=== PATIENT | female | born 1960 | race Two or more races ===

== ENCOUNTER 2016-12-26 13:28 | Emergency (ER) | payer MEDICAID ==
[2016-12-26 17:56] VITALS: BP 116/73
== END 2016-12-26 17:57 | disposition home or self-care (01) ==
LOC: ED 13:28
DX: F41.9 Anxiety disorder, unspecified (principal); R10.9 Unspecified abdominal pain; R11.10 Vomiting, unspecified; R19.7 Diarrhea, unspecified; I10 Essential (primary) hypertension
CPT/HCPCS: J2060; Q0162

== ENCOUNTER 2017-11-28 08:50 | Emergency (ER) | payer MEDICAID ==
[~2017-11-28] VITALS: Ht 152.4 cm; Wt 82.5 kg
[2017-11-28 08:54] VITALS: Ht 152.4 cm; Wt 82.5 kg
[2017-11-28 09:46] LABS: BASOPHIL % 0.3 % (0-2); RED CELL DISTRIBUTION WIDTH 13.6 % (11.5-14.5)
[2017-11-28 09:47] LABS: PLATELET COUNT 482 x10^3mcL (130-400)
[2017-11-28 09:56] LABS: CALCIUM 9.3 mg/dL (8.5-10.1); CARBON DIOXIDE 25.6 mmol/L (21-32); CHLORIDE SERUM 95 mmol/L (98-107); CREATININE SERUM 0.8 mg/dL (0.6-1.0); GFR1 > 60 mL/min; GLUCOSE SERUM 121 mg/dL (74-106); POTASSIUM SERUM 4.9 mmol/L (3.5-5.1); SODIUM SERUM 127 mmol/L (136-145)
[2017-11-28 11:43] VITALS: BP 111/72
== END 2017-11-28 11:43 | disposition home or self-care (01) ==
LOC: ED 08:50
PROVIDERS: Emergency Medicine
DX: F41.9 Anxiety disorder, unspecified (principal); E87.1 Hypo-osmolality and hyponatremia; I10 Essential (primary) hypertension
CPT/HCPCS: 36415